=== PATIENT | female | born 1955 | race Caucasian/White ===

== ENCOUNTER → 2023-10-21 | Outpatient (CLI) | payer MEDICARE | END | disposition home or self-care (01) | LOC: RESCLI 08:55 | PROVIDERS: ATTEND Internal Medicine | DX: I48.91 Unspecified atrial fibrillation (principal); E11.65 Type 2 diabetes mellitus with hyperglycemia; I10 Essential (primary) hypertension; M19.90 Unspecified osteoarthritis, unspecified site; E78.2 Mixed hyperlipidemia; J30.2 Other seasonal allergic rhinitis; K59.00 Constipation, unspecified; Z79.899 Other long term (current) drug therapy; Z88.8 Allergy status to other drugs, medicaments and biological substances; Z98.890 Other specified postprocedural states ==